=== PATIENT | female | born 1960 | race Caucasian/White ===

== ENCOUNTER 2020-04-22 12:40 | Outpatient (CLI) | payer BC | END 2020-04-22 12:41 | disposition home or self-care (01) | LOC: BICMAMMO 12:40 | PROVIDERS: ATTEND Family Medicine | DX: Z12.31 Encounter for screening mammogram for malignant neoplasm of breast (principal); N64.89 Other specified disorders of breast; N63.21 Unspecified lump in the left breast, upper outer quadrant; Z80.3 Family history of malignant neoplasm of breast | CPT/HCPCS: 77063; 77067 ==

== ENCOUNTER 2020-04-27 14:11 | Outpatient (CLI) | payer BC | END 2020-04-27 14:12 | disposition home or self-care (01) | LOC: TBSIIMAG 14:11 | PROVIDERS: ATTEND Orthopaedic Surgery | DX: M54.5 Low back pain (principal); M47.816 Spondylosis without myelopathy or radiculopathy, lumbar region; M47.817 Spondylosis without myelopathy or radiculopathy, lumbosacral region; N28.9 Disorder of kidney and ureter, unspecified | CPT/HCPCS: 72148 ==

== ENCOUNTER 2020-04-29 13:20 | Outpatient (CLI) | payer BC | END 2020-04-29 13:21 | disposition home or self-care (01) | LOC: BICMAMMO 13:20 | PROVIDERS: ATTEND Family Medicine | DX: R92.2 Inconclusive mammogram (principal) | CPT/HCPCS: G0279 ==

== ENCOUNTER 2020-12-14 16:41 | Outpatient (CLI) | payer BC | END 2020-12-14 16:42 | disposition home or self-care (01) | LOC: ULT 16:41 | PROVIDERS: ATTEND Family Medicine | DX: M79.605 Pain in left leg (principal) ==

== ENCOUNTER 2021-06-22 13:10 | Outpatient (CLI) | payer BC | END 2021-06-22 13:11 | disposition home or self-care (01) | LOC: BICMAMMO 13:10 | PROVIDERS: ATTEND Family Medicine | DX: Z12.31 Encounter for screening mammogram for malignant neoplasm of breast (principal); Z80.3 Family history of malignant neoplasm of breast | CPT/HCPCS: 77063; 77067 ==